=== PATIENT | female | born 1945 | race Caucasian/White ===

== ENCOUNTER 2016-11-27 11:23 | Day surgery (SDC) | payer OTHER ==
--- NOTE | ~2016-11-27 | OP ---
Record Of Operation [facility] [address] [place]. [address] NAME: NATHANIEL GANNON : 45 STATUS : [facility]#: [id number] AGE: 71 ADM/REG DATE : 11/27/16 MR#: [id number] REPORT SERV DATE: 11/28/16 DICTATED BY: RONALDO PATEL JR. DATE: 11/28/16 REPORT STATUS : Draft TRANSCRIBED BY: IVY DATE: 11/28/16 DATE OF PROCEDURE: PREOPERATIVE DIAGNOSIS: Wound dehiscence, right eye. POSTOPERATIVE DIAGNOSIS: Wound dehiscence, right eye. PROCEDURE: Wound revision, right eye with conjunctival flap. ANESTHESIA: General. INDICATIONS: The patient is a 71-year-old white female who underwent temporal clear cornea cataract surgery 2 weeks ago. Subsequently, postoperatively, she developed a wound leak due to a corneal burn during surgery. The wound was revised x2. The second time with a conjunctival flap. She was found yesterday from her referring doctor to have a wound leak and low intra-ocular pressure of 5. She was referred to my office for evaluation. On evaluation, her vision in the eye was good with visual acuity in the 20/50 range. She was found to have a moderate wound leak in the right eye with a pressure of 4. Options were discussed with the patient including, but not limited to, observation and revision of the wound. Risks and benefits were discussed including, but not limited to, bleeding, blindness, infection, reoperation, loss of the eye, no improved best correct acuity, need for further procedures. The patient voiced understanding and desired to have the procedure performed. PROCEDURE IN DETAIL: The patient was identified in the holding area. The eye to operate on was marked. She was taken to the operating room, where she was intubated by Anesthesia. Next, the eye was prepped and draped in usual fashion. Tegaderm strips were used to keep the lashes out of the operative field. A wire speculum was inserted into the eye. Next, a retraction suture was placed at the 5 o'clock position to the center of the eye. The conjunctival flap was then taken down. There were sutures of the wound noted. These were removed. The area of the wound was debrided. There was approximately 50% thinning noted of the cornea. Two interrupted sutures were placed through the corneal incision. There was still a slow leak, but the chamber remained formed. At this point, the conjunctival flap was freed six 10-0 nylon sutures were then used to place the conjunctival flap over the area of the melting cornea and reinforce the wound. Paracentesis was created at 2 o'clock. The chamber was filled with BSS. There were no leaks noted. The eye held above normal physiologic pressures. The intraocular antibiotic was injected of cefuroxime. Subconjunctival Ancef and tobramycin were administered as well. A drop of dilute Betadine was placed on the eye. The speculum was removed. The eye was pressure patched. A shield was placed. She was extubated and returned to holding area in good condition. SPECIMENS: None. COMPLICATIONS: None. ESTIMATED BLOOD LOSS: Less than 1 mL. Record Of Operation [facility] [id number] [place]. [address] NAME: NATHANIEL GANNON : 45 STATUS : [facility]#: [id number] AGE: 71 ADM/REG DATE : 11/27/16 MR#: [id number] REPORT SERV DATE: 11/28/16 DICTATED BY: RONALDO PATEL JR. DATE: 11/28/16 REPORT STATUS : Draft TRANSCRIBED BY: MODVivienne DATE: 11/28/16 PB/IVY Ronaldo Patel M.D. / [id number] CC: Sean Oden M.D.
[~2016-11-27 11:23] MED LIST: CALTRA600D PO; CRESTOR10 PO; EFFEXOR100 MG PO; GLUCPH PO; LIPITOR20 PO; TAGAMET 200 MG200 MG PO; ZANTAC 150 PO
[2016-11-27 12:22] LABS: HEMATOCRIT 38.1 % (36.0-48.0); HEMOGLOBIN 12.6 g/dL (12.0-16.0)
[2016-11-27 12:36] LABS: CALCIUM, SERUM 9.1 MG/DL (8.5-10.4); CHLORIDE, SERUM 104 MMOL/L (96-112); CO2 (CARBON DIOXIDE) 27 MMOL/L (24-34); GFR AFRICAN AMERICAN 75 ML/MIN (>=60); GFR NON AFRICAN AMERICAN 64 ML/MIN (>=60); POTASSIUM, SERUM 4.1 MMOL/L (3.5-5.3); SODIUM, SERUM 141 MMOL/L (135-148)
[2016-11-27 12:38] LABS: BUN (BLOOD UREA NITROGEN) 20 MG/DL (6-23); GLUCOSE, SERUM 128 MG/DL (60-99)
== END 2016-11-27 18:32 | disposition home or self-care (01) ==
LOC: SDC 11:23
PROVIDERS: Ophthalmology
PROC: 08W Eye, Revision (ICD-10-PCS; principal; 2016-11-27 12:45)
DX: T81.31XA Disruption of external operation (surgical) wound, not elsewhere classified, initial encounter (principal); I10 Essential (primary) hypertension; E11.9 Type 2 diabetes mellitus without complications; F32.9 Major depressive disorder, single episode, unspecified; E78.00 Pure hypercholesterolemia, unspecified; E03.9 Hypothyroidism, unspecified; Z79.899 Other long term (current) drug therapy; Z88.5 Allergy status to narcotic agent
CPT/HCPCS: 80048; 82962; 85014; 85018; 93005; J0690; J2405; J3010; J3260